=== PATIENT | female | born 1940 | race Caucasian/White ===

== ENCOUNTER 2017-04-19 16:19 | Emergency (ER) | payer MEDICARE, OTHER ==
[~2017-04-19] VITALS: Ht 170.2 cm; Wt 81.7 kg
[~2017-04-19 16:19] MED LIST: ALPR.5 PO; AMLO5 PO; AMLOATOR PO; CELE100 PO; LEVFLO500 PO; NAPR550 PO; OXYACE5T PO; PRED20 PO; PROM25 PO; RXNAPNA550 PO; RXOXYACE PO; TRAM50 PO
[2017-04-19] MEDS ORDERED: LEVO750 (16:35)
[2017-04-19] MEDS ORDERED: Cymbalta20 MG (16:36)
[2017-04-19] MEDS ORDERED: TUSSIN PO (16:36)
[2017-04-19] MEDS ORDERED: Cymbalta20 MG PO (16:37)
[2017-04-19 17:04] LABS: BASOPHILS ABSOLUTE AUTO 0.05 K/mm3 (0.00-0.23); BASOPHILS PERCENT AUTO 1 % (0-2); EOSINOPHILS ABSOLUTE AUTO 0.29 K/mm3 (0.00-0.68); EOSINOPHILS PERCENT AUTO 3 % (0-6); Hematocrit 41.4 % (33.0-51.0); Hemoglobin 13.9 g/dL (11.5-16.0); IMMATURE GRAN ABSOLUTE AUTO 0.04 K/mm3 (0.00-0.10); IMMATURE GRAN PERCENT AUTO 1 % (0-1); LYMPHOCYTES ABSOLUTE AUTO 1.01 K/mm3 (0.84-5.20); LYMPHOCYTES PERCENT AUTO 12 % (21-46); MONOCYTES ABSOLUTE AUTO 0.92 K/mm3 (0.16-1.47); MONOCYTES PERCENT AUTO 11 % (4-13); Mean Corpuscular HGB 30.3 pg (26.0-34.0); Mean Corpuscular HGB Conc 33.6 g/dL (31.5-36.5); Mean Corpuscular Volume 90 fL (80-100); Mean Platelet Volume 11.1 fL (9.1-12.4); NEUTROPHILS ABSOLUTE AUTO 6.49 K/mm3 (1.96-9.15); NEUTROPHILS PERCENT AUTO 74 % (41-73); Platelet Count 244 K/mm3 (150-400); RDW Coefficient Variation 13.2 % (11.7-14.2); RDW Standard Deviation 43.8 fL (35.1-46.3); Red Blood Cell Count 4.58 M/mm3 (3.80-5.20)
[2017-04-19 17:35] LABS: Anion Gap 9 mmol/L (6-16); Blood Urea Nitrogen 17 mg/dL (8-24); Bun/Creatinine Ratio 22.3 (12.0-20.0); CO2, Blood 27 mmol/L (21-32); Calcium, Blood 8.8 mg/dL (8.5-10.1); Chloride, Blood 104 mmol/L (98-108); Creatinine, Blood 0.76 mg/dL (0.40-1.00); Glomerular Filtration Rate >60 (60-); Glucose, Blood 100 mg/dL (70-99); Potassium, Blood 3.6 mmol/L (3.5-5.5); Sodium, Blood 140 mmol/L (136-145)
[2017-04-19] MEDS ORDERED: Prednisone20 MG PO (18:10)
[2017-04-19] MEDS ORDERED: Zithromax250 MG PO (18:10)
== END 2017-04-19 19:05 | disposition home or self-care (01) ==
LOC: ER 16:19
PROVIDERS: Emergency Medicine
DX: H93.13 Tinnitus, bilateral (principal); T37.8X5A Adverse effect of other specified systemic anti-infectives and antiparasitics, initial encounter; T40.2X5A Adverse effect of other opioids, initial encounter; I10 Essential (primary) hypertension; Z87.891 Personal history of nicotine dependence; Z87.01 Personal history of pneumonia (recurrent); Z88.5 Allergy status to narcotic agent; Z79.899 Other long term (current) drug therapy
CPT/HCPCS: 71046; 80048; 85025; 93005; 93010; 99283

== ENCOUNTER → 2020-07-06 | Outpatient (CLI) | payer MEDICARE, OTHER ==
[~2020-07-06] MED LIST changes: +Cymbalta20 MG; +Cymbalta20 MG PO; +LEVO750; +Prednisone20 MG PO; +TUSSIN PO; +Zithromax250 MG PO
== END ==
LOC: LAB SHORT 14:02 → LAB 14:02
DX: L08.9 Local infection of the skin and subcutaneous tissue, unspecified (principal); Z88.5 Allergy status to narcotic agent
CPT/HCPCS: 87070; 87077; 87147; 87186; 87205

== ENCOUNTER 2021-02-17 10:08 | Emergency (ER) | payer MEDICARE, OTHER ==
[~2021-02-17] VITALS: Ht 177.8 cm; Wt 79.4 kg
[2021-02-17] MEDS ORDERED: METO25ER PO (10:33)
[2021-02-17] MEDS ORDERED: ATOR10 PO (10:33)
[2021-02-17] MEDS ORDERED: XARELTO20 MG PO (10:33)
[2021-02-17] MEDS ORDERED: ACET500 PO (11:31)
[2021-02-17] MEDS ORDERED: CEPH500 PO (11:31)
[2021-02-17] MEDS ORDERED: Voltaren100 GM TOP (11:46)
== END 2021-02-17 11:47 | disposition home or self-care (01) ==
LOC: ER 10:08
DX: L03.115 Cellulitis of right lower limb (principal); S09.90XA Unspecified injury of head, initial encounter; I10 Essential (primary) hypertension; I48.91 Unspecified atrial fibrillation; Z88.5 Allergy status to narcotic agent; Z79.899 Other long term (current) drug therapy; Z79.01 Long term (current) use of anticoagulants; Z87.891 Personal history of nicotine dependence; W18.30XA Fall on same level, unspecified, initial encounter
CPT/HCPCS: 70450; 73630; 96372; 99284-25; A9270; J1885

== ENCOUNTER 2021-08-12 07:26 | Inpatient (IN) | payer MEDICARE, OTHER ==
[~2021-08-12] VITALS: Ht 177.8 cm; Wt 81.9 kg
[~2021-08-12 07:26] MED LIST changes: +ACET500 PO; +ALPRAZOLAM0.5 M1 PO; +ATOR10 PO; +CEPH500 PO; +METO10 PO; +METO25ER PO; +OXYC5 PO; +Voltaren100 GM TOP; +XARELTO15 MG PO; +XARELTO20 MG PO
[2021-08-12 08:03] LABS: Base Excess Venous -2.4 mmol/L; Bicarbonate Venous 21.6 mmol/L (24.0-30.0); PCO2 Venous 68.7 mmHg (38-42); pH Blood Venous 7.19 (7.34-7.37)
[2021-08-12 08:21] LABS: Source, Urine Clean Catch
[2021-08-12] MEDS ORDERED: ONDA4ODT MM (08:21)
[2021-08-12] MEDS ORDERED: CHEMOTHERAPY (08:22)
[2021-08-12 08:25] LABS: Hematocrit 32.8 % (33.0-51.0); Hemoglobin 10.2 g/dL (11.5-16.0); Mean Corpuscular HGB 27.6 pg (26.0-34.0); Mean Corpuscular HGB Conc 31.1 g/dL (31.5-36.5); Mean Corpuscular Volume 89 fL (80-100); Mean Platelet Volume 11.2 fL (9.1-12.4); Platelet Count 300 K/mm3 (150-400); RDW Coefficient Variation 14.5 % (11.7-14.2); RDW Standard Deviation 46.3 fL (35.1-46.3); White Blood Cell Count 3.88 K/mm3 (4.00-11.30)
[2021-08-12 08:26] LABS: Appearance, Urine Clear (Clear); Bilirubin, Urine Neg (Neg); Blood, Urine 1+ (Neg); Color, Urine Yellow (P-Yellow); Glucose Qualitative, Urine Neg (Neg); Ketones, Urine Neg (Neg); Leukocyte Esterase, Urine Neg (Neg); Nitrite, Urine Neg (Neg); Protein, Urine 1+ (Neg); Specific Gravity, Urine 1.015 (1.003-1.022); Urobilinogen, Urine NORM (Normal)
[2021-08-12 08:38] LABS: Bacteria Few /hpf; Red Blood Cells, Urine 0-2 /hpf (0-2); Squamous Epithelial Cells Few /hpf (Few); White Blood Cells, Urine 0-2 /hpf (0-5)
[2021-08-12 08:47] LABS: BASOPHILS PERCENT MAN 0 % (0-2); EOSINOPHILS PERCENT MAN 0 % (0-6); LYMPHOCYTES ABSOLUTE MAN 0.27 K/mm3 (0.84-5.20); LYMPHOCYTES PERCENT MAN 7 % (21-46); MONOCYTES ABSOLUTE MAN 0.07 K/mm3 (0.16-1.47); MONOCYTES PERCENT MAN 2 % (4-13); NEUTROPHILS ABSOLUTE MAN 3.53 K/mm3 (1.96-9.15); SEG NEUTROPHILS PERCENT MAN 91 % (41-73); TOTAL CELLS COUNTED 100
[2021-08-12 08:49] LABS: Magnesium, Blood 1.9 mg/dL (1.6-2.4)
[2021-08-12 08:50] LABS: Albumin, Blood 2.1 g/dL (3.4-5.0); Albumin/Globulin Ratio 0.5 (0.8-1.8); Bilirubin, Direct 0.1 mg/dL (0.0-0.3); Bilirubin, Indirect 0.3 mg/dL (0.1-0.7); Bilirubin, Total 0.4 mg/dL (0.1-1.0); Bun/Creatinine Ratio 51.3 (12.0-20.0); Creatinine, Blood 1.19 mg/dL (0.40-1.00); Globulin, Blood 3.9 g/dL (2.2-4.0)
[2021-08-12 09:04] LABS: Influenza A, PCR NEGATIVE (NEGATIVE); Influenza B, PCR NEGATIVE (NEGATIVE); Resp Syncytial Virus, PCR NEGATIVE (NEGATIVE); SARS-Cov-2 (COVID-19) PCR, MMC NEGATIVE (NEGATIVE)
[2021-08-12 10:25] LABS: PCO2 Arterial 49.4 mmHg (35-45); PO2 Arterial 92.4 mmHg (80-100)
[2021-08-12 10:41] LABS: U Amphetamine Screen Not Detected; U Barbituate Screen Not Detected; U Benzodiazapine Screen DETECTED; U Buprenorphine Screen Not Detected; U Cannabinoids Screen Not Detected; U Cocaine Screen Not Detected; U Methadone Screen Not Detected; U Methamphetamine Screen Not Detected; U Opiates Screen Not Detected; U Oxycodone Screen DETECTED; U Phencyclidine Screen Not Detected; U Propoxyphene Screen Not Detected
--- NOTE | 2021-08-12 12:00 | NUR ---
Assumed care of pt on arrival to ICU 12 from ED at 1055. Report received from Ashwin PRUETT. Pt arrived with fentanyl and versed drip for sedation. Changed to propofol drip per v/o from Dr Reyez. OG tube in place and confirmed with xray prior to arrival. Temp ojeda in place. 7.5 cm ETT, 24 cm at teeth. Vent settings ACVC 18/350/5/30%.
[2021-08-12] MEDS ORDERED: QUET25 PO (17:52)
[2021-08-12] MEDS ORDERED: ALPR.5 PO (17:53)
--- NOTE | 2021-08-12 19:28 | NUR ---
SUMMARY Neuro: Propofol 50 mcg/kg/min for sedation. Febrile. Not responsive to tylenol within 1 hr of administration. Ice packs placed to groin and bilat axilla. Effectively reduced temperature to from 101.8 to 100.4. PERRL. Cough and gag intact. Musc: Moves all extremities with equal strength and range of motion. Requires total care for all ADLs, including Q2H reposition. Respiratory: 75 cm ETT, 24 cm at teeth. Vent settings ACVC 18/350/5/30%. SpO2 90% or greater. Moderate amount of thick, cornejo sputum suctioned from ETT. Sputum sample sent. Cardiac: Tachycardia, irregular rhythm with P waves present, rate currently 105-110. No edema. Capillary refill less than 3 seconds BUE and BLE. Requiring levophed 4 mcg/min to maintain MAP greater than 65. Levophed infusing through PICC. GI: Hypoactive BT. Last BM yesterday per family. OG tube with feeds and flushes per orders. : Fung catheter with good urine output Skin: Unchanged from initial assessment Psychosocial: Pt's spouse and daughter at bedside and updated.
[2021-08-13 04:45] LABS: Hematocrit 29.8 % (33.0-51.0); Hemoglobin 9.3 g/dL (11.5-16.0); Mean Corpuscular HGB 27.4 pg (26.0-34.0); Mean Corpuscular HGB Conc 31.2 g/dL (31.5-36.5); Mean Corpuscular Volume 88 fL (80-100); Mean Platelet Volume 11.4 fL (9.1-12.4); Platelet Count 282 K/mm3 (150-400); RDW Coefficient Variation 14.6 % (11.7-14.2); RDW Standard Deviation 46.8 fL (35.1-46.3); Red Blood Cell Count 3.39 M/mm3 (3.80-5.20)
[2021-08-13 04:51] LABS: BASOPHILS ABSOLUTE AUTO 0.01 K/mm3 (0.00-0.23); BASOPHILS PERCENT AUTO 1 % (0-2); EOSINOPHILS ABSOLUTE AUTO 0.03 K/mm3 (0.00-0.68); EOSINOPHILS PERCENT AUTO 3 % (0-6); IMMATURE GRAN ABSOLUTE AUTO 0.19 K/mm3 (0.00-0.10); IMMATURE GRAN PERCENT AUTO 20 % (0-1); LYMPHOCYTES PERCENT AUTO 22 % (21-46); MONOCYTES ABSOLUTE AUTO 0.03 K/mm3 (0.16-1.47); MONOCYTES PERCENT AUTO 3 % (4-13); NEUTROPHILS ABSOLUTE AUTO 0.47 K/mm3 (1.96-9.15); NEUTROPHILS PERCENT AUTO 51 % (41-73)
[2021-08-13 04:57] LABS: White Blood Cell Count 0.93 K/mm3 (4.00-11.30)
[2021-08-13 05:25] LABS: Albumin, Blood 1.8 g/dL (3.4-5.0); Albumin/Globulin Ratio 0.5 (0.8-1.8); Bilirubin, Total 0.7 mg/dL (0.1-1.0); Bun/Creatinine Ratio 42.2 (12.0-20.0); Calcium, Blood 7.2 mg/dL (8.5-10.1); Creatinine, Blood 1.02 mg/dL (0.40-1.00); Globulin, Blood 3.5 g/dL (2.2-4.0); Potassium, Blood 4.5 mmol/L (3.5-5.5); Total Protein, Blood 5.3 g/dL (6.4-8.2)
--- NOTE | 2021-08-13 06:16 | NUR ---
PT. STARTED FIGHTING VENTILATOR LAST NIGHT, AFTER GIVING 2 FENT PUSHES, I UPPED THE SEDATION BY CHANGING PROP FROM 50 TO 55. PT. RESTED WELL AFTER THE CHANGE AND REQUIRED NO MORE PUSHES. PT. STILL REMAINS ON THE SAME VENTILATOR SETTINGS AND IS SATTING WELL. PT. WAS ABLE TO COME DOWN FROM 4 OF LEVO TO 3, MAINTAING GOOD PRESSURES. HUBER IS STILL IN AND DRAINING WELL, PT. HAD 560 UOP OVERNIGHT. PT. TEMPERATURE HAS BEEN BETWEEN 99.9-101.1 TONIGHT. TUBE FEED RESIDUALS WERE GOOD SO THE TUBE FEED WAS UPPED TO GOAL RATE OF 35 WITH 30 Q4HR FLUSH. PT. BATHED OVERNIGHT AND RESTING COMFORTABLY AT THIS TIME.
--- NOTE | 2021-08-13 07:41 | NUR ---
TOOK OVER CARE OF PT AT 0700, PT VENTED ON AC/VC 18/350/30%/15, SEDATED WITH 55MCG OF PROPOFOL AND 3MCG OF LEVO RUNNING
--- NOTE | 2021-08-13 10:34 | NUR ---
VERIFIED WITH PHARMACY LOVENOX DOSE IS CORRECT FOR FULL ANTICOAGULATION. PROPOFOL PLACED ON SB
--- NOTE | 2021-08-13 18:43 | NUR ---
SUMMARY NEURO: PT FOLLOWING COMMANDS WHEN MOTIVATED TO. BUE VERY WEAK, PUPILS PERRLA. CARDIAC; PT IN AIB THROUGHOUT DAY, HR RANGING 115-150'S. AWARE. PT IS ON FULL DOSE ANTICOAGULATION. PULSES PALPABLE, TRACE EDEMA FORMING BLE. LEVO ON SB. MAPS HAVE BEEN >65. PT TAKES 50MG OF PO METOPROLOL BUT NONE ORDERED AT THIS TIME. CALCIUM WAS NOT REPLACED THIS SHIFT LUNGS: PRESSURE SUPPORT 15/5 30%. SPUTUM CAME BACK POSITIVE FOR GRAM + COCCI. GI: TF RUNNING AT GOAL, ACTIVE BOWEL SOUNDS, SOFT ABDOMEN. TWO LARGE BM'S OF SOFT, BROWN STOOL. : HUBER IN PLACE, LOW OUTPUT, YELLOW/HAZY. SKIN: LEFT FOOT HAS SLIGHT REDNESS, TMAX OF 102.1
--- NOTE | 2021-08-13 21:20 | NUR ---
ASSUMED CARE AT 1900 PT LAYING IN BED INTUBATED WITH VENT SETTINGS SPONT 15/5, FIO2 30%, Vt 600'S; SMALL AMOUNT OF THICK SECREATIONS FROM ETT. PT SEDATED WITH PROPOFOL INFUSING AT 30MCG/KG/MIN; PT OPENS EYES TO VERBAL STIMULATION AND UPON DIRECTION; MOVES BLE SPONTANIOUSLY; BUE EXTREAMLY WEAK; DID NOT ANSWER Y/N QUESTIONS. SINUS ARRHYTHMIA NOTED, HR 120'S. SBP 90-110, MAP >65; LEVOPHED ON SB. PIVOT INFUSING VIA OG AT 35ML/HR (GOAL) WITH 30ML WATER FLUSHES Q4HR; 60ML RESIDUALS. HUBER IN PLACE DRAINING YELLOW, CLOUDY, SEDAMENT OUTPUT. PICC TO RUTH PATENT AND INFUSING. SEE SHIFT ASSESSMENT FOR FULL ASSESSMENT.
[2021-08-14 03:52] LABS: Hematocrit 26.6 % (33.0-51.0); Hemoglobin 8.5 g/dL (11.5-16.0); Mean Corpuscular HGB 27.2 pg (26.0-34.0); Mean Corpuscular Volume 85 fL (80-100); Mean Platelet Volume 11.5 fL (9.1-12.4); Platelet Count 207 K/mm3 (150-400); RDW Coefficient Variation 14.6 % (11.7-14.2); RDW Standard Deviation 45.1 fL (35.1-46.3); Red Blood Cell Count 3.12 M/mm3 (3.80-5.20)
[2021-08-14 04:00] LABS: BASOPHILS ABSOLUTE AUTO 0.01 K/mm3 (0.00-0.23); BASOPHILS PERCENT AUTO 3 % (0-2); EOSINOPHILS ABSOLUTE AUTO 0.02 K/mm3 (0.00-0.68); EOSINOPHILS PERCENT AUTO 5 % (0-6); IMMATURE GRAN PERCENT AUTO 0 % (0-1); LYMPHOCYTES ABSOLUTE AUTO 0.25 K/mm3 (0.84-5.20); LYMPHOCYTES PERCENT AUTO 68 % (21-46); MONOCYTES ABSOLUTE AUTO 0.03 K/mm3 (0.16-1.47); MONOCYTES PERCENT AUTO 8 % (4-13); NEUTROPHILS ABSOLUTE AUTO 0.06 K/mm3 (1.96-9.15); NEUTROPHILS PERCENT AUTO 16 % (41-73); White Blood Cell Count 0.37 K/mm3 (4.00-11.30)
[2021-08-14 04:11] LABS: Magnesium, Blood 1.9 mg/dL (1.6-2.4)
[2021-08-14 04:12] LABS: Albumin, Blood 1.6 g/dL (3.4-5.0); Albumin/Globulin Ratio 0.5 (0.8-1.8); Bilirubin, Total 0.8 mg/dL (0.1-1.0); Bun/Creatinine Ratio 41.3 (12.0-20.0); Creatinine, Blood 1.04 mg/dL (0.40-1.00); Globulin, Blood 3.5 g/dL (2.2-4.0); Phosphorus, Blood 2.2 mg/dL (2.5-4.9); Total Protein, Blood 5.1 g/dL (6.4-8.2)
--- NOTE | 2021-08-14 06:11 | NUR ---
END OF SHIFT SUMMARY NO ACUTE CHANGES OVER NIGHT. PT CONT TO BE INTUBATED WITH VENT SETTINGS SPONT 15/5, FIO2 35%, Vt 550-600; SMALL AMOUNT OF THIN SECREATIONS FROM ETT. PT CONT TO BE REACTIVE TO VERBAL STIMULI; WILL OPEN EYES SPONTANIOUSLY AND ON COMMAND; DID NOT FOLLOW OTHER CAMMANDS; WILL SPONTANIOUSLY MOVE ALL EXTREMITIES, PULLING AGAINST RESTRAINTS WEAKLY; PROPOFOL INFUSING AT 35MCG/KG/MIN. TMAX 102; FAN PLACED ON PT AND TYLENOL GIVEN; TEMP NOW 99.8. HR 100-120. SBP 90-120; MAP >65; LEVOPHED OFF ALL NIGHT. PIVOT INFUSING VIA OG AT GOAL. RECTAL TUBE PLACED DUE TO LIQUID STOOLS ANY TIME PT WAS TURNED OR COUGHED; 350ML OUT OF RECTAL TUBE. HUBER IN PLACE AND DRAINING TO GRAVITY; 450ML OUTPUT. MEPILEX TO COCCYX, AREA LESS RED THAN AT THE BEGINING OF SHIFT; DRESSING CHANGED DURING ATTEND CHANGE. PICC TO RUTH PATENT WITH DRESSING C/D/I. WILL REPORT TO AM RN WHEN AVAILABLE.
--- NOTE | 2021-08-14 08:00 | NUR ---
PT AWAKE, APPEARS AGITATED, GRIMACING, PULLING ON RESTRAINTS, UNABLE TO FOLLOW COMMANDS, BUT MOVING ALL EXTREMITIES. PROPOFOL DRIP @ 35 MCG/KG/MIN. RR 36 AND PT COUGHING-MED WITH FENTANYL 50 MCG IVP X 1 FOR PAIN/SEDATION ADJUNCT. SHORTLY AFTER MED WITH FENTANYL, RR 18 AND CPOT 0.TEMP 99.8, ECG SHOWS ST WITH RATE 110-120'S. MAP TRENDING 70'S. NO NOTED EDEMA. DP/PT FAINT, BUT PALPABLE. LUNGS COARSE TO UPPER LOBES AND DIMINISHED IN THE BASES. ETT SUCTION PRODUCTIVE OF LARGE AMOUNT OF THICK, WEN SECRETIONS. ETT/BITE BLOCK RETAPED-7.5/24 @ TEETH. VENT:PS 15/5-FIO2 30%-SATS>90%. OGTF WITH 15 CC RESIDUAL REFED. PIVOT @ 35 CC/HR (GOAL). RECTAL TUBE INTACT WITH MODERATE AMOUNT OF BROWN, LIQUID STOOL. RECTAL TUBE CARE DONE, PINTO AND DRY CHANTAL CHANGED, AND CALAZIME APPLIED TO SKIN AROUND RECTAL TUBE. MEPILEX INTACT TO COCCYX-SLIGHT REDNESS NOTED UNDER DRESSING, BUT NO SKIN BREAKDOWN. 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 SCATTERED ECCHYMOTIC AREA TO UPPER EXTREMITIES. HUBER TO BSD WITH SMALL AMOUNT OF DARK, YELLOW, CLOUDY URINE. ANTICIPATE POSSIBLE EXTUBATION TODAY. DISCUSSED PLAN OF CARE WITH PT SPOUSE, JARAD. JARAD VERBALIZES THAT HE IS UNSURE IF PT WILL CONTINUE WITH HER CHEMO SHE HAS HAD SO MANY COMPLICATIONS. PT SPOUSE WOULD LIKE TO SPEAK WITH PALLIATIVE CARE TO DISCUSS PLAN OF CARE AND OPTIONS.
--- NOTE | 2021-08-14 10:00 | NUR ---
DR. COOLEY UPDATED. DR. GAGE'S OFFICE NOTIFIED OF PT ADMIT AND CONSULTATION REQUESTED. PT OPENING HER EYES TO VOICE AND SHE FOLLOWED COMMANDS TO SYSTEMS ANALYST DEVELOPER WITH THE RIGHT HAND. RR 30'S-PRECEDEX DRIP INITIATED @ 0.4 MCG/KG/MIN-PROPOFOL DRIP TITRATED DOWN TO 20 MCG/KG/MIN. THE GOAL IS TO TITRATED PROPOFOL TO OFF TOLERATED. PS INCREASED TO [address] DALEY-SATS>90%
--- NOTE | 2021-08-14 12:15 | NUR ---
PT APPEARS ANXIOUS AND AGITATED WITH PRECEDEX @ 1.0 MCG/KG/MIN AND PROPOFOL @ 10 MCG/KG/MIN. RR 34 AND PT GRIMACING AND COUGHING. MED WITH FENTANYL 50 MCG IVP X 1 - SEE EMAR. HERE TO SEE PT. UPDATED GIVEN. AWARE THAT PT FAMILY WITH RETURN IN APROXIMATELY 10 MINUTES-DR. GAGE REQUESTS TO HAVE PT SPOUSE "CALL ME."
--- NOTE | 2021-08-14 12:30 | NUR ---
Attempted to visit with and family. No family at bedside currently.
--- NOTE | 2021-08-14 13:44 | NUR ---
DR. COOLEY IN TO SEE PT. PS 10. CONTINUE TO ATTEMPT TO WEAN PROPOFOL TO OFF. ATIVAN 1 MG IVP Q 1 HOUR TO BE GIVEN PRN AGITATION. DR. GAGE TO RETURN TO SPEAK WITH PT FAMILY @ 1700-DR. COOLEY TO ATTEND THIS MEETING WELL.
--- NOTE | 2021-08-14 15:00 | NUR ---
TEMP 102.9. TYLENOL GIVEN PER TUBE AND ICE PACKS PLACED. RR 40'S. PT GRIMACING, AGITATED, AND PULLING ON RESTRAINTS*WITH PROPOFOL @ 10 MCG/KG/MIN AND PRECEDEX @ 1.4 MCG/KG/MIN*. UPDATED. BC X 2, AND SPUTUM SENT. PT PLACED ON AC/VC 18, 470, 5, 30%-PROPOFOL TITRATED UP TO 20 MCG/KG/MIN, PRECEDEX TITRATED DOWN TO 0.7 MCG/KG/MIN.
--- NOTE | 2021-08-14 15:45 | NUR ---
MAP TRENDING LESS THAN 50. PT RESTING QUIETLY ON VENT WITH PROPOFOL @ 25 MCG/KG/MIN AND PRECEDEX @ 0.7 MCG/KG/MIN. DR. COOLEY AWARE. LEVOPHED DRIP INITIATED @ 2 MCG/MIN-TITRATE TO KEEP MAP 60-66.
--- NOTE | 2021-08-14 16:56 | NUR ---
DR. GAGE AND DR. COOLEY IN TO DISCUSS PLAN OF CARE WITH PT FAMILY.
--- NOTE | 2021-08-14 18:00 | NUR ---
PT RESTING QUIETLY ON VENT WITH PROPOFOL @ 25 MCG/KG/MIN AND PRECEDEX @ 0.7 MCG/KG/MIN. SATS>90% VENT REMAINS ON AC/VC18, 470, 5, 30% HR 70'S SR. MAP TRENDING 65-70 WITH LEVOPHED @ 3 MCG/MIN. HUBER WITH 450 CC URINE OUT THIS SHIFT. URINE REMAINS DARK, YELLOW, AND CLOUDY. PT FAMILY LEFT FOR THE EVENING. BEFORE LEAVING, PT SPOUSE DON VERBALIZED HIS HOPE TO EXTUBATE PT AGUILA AND TO TAKE HER HOME ON HOSPICE.
--- NOTE | 2021-08-14 21:21 | NUR ---
ASSUMED CARE AT 1900 PATIENT IS INTUBATED AND SEDATED ON PRECEDEX AND PROPOFOL, RESPONDS TO PRESSURE. MOVES ALL EXTREMETIES. 02 SATS 97% ON VENT AC VC+ 18/470/5/30%, RR 18-20, SUCTIONING LARGE AMOUNTS OF THICK EWN SPUTUM. HR SR 70s-80s, BP STABLE WITH LEVO INF. OG TUBE INF TUBE FEED, PIVOT AT GOAL RATE OF 35 MLS/HR WITH 30 MLS FLUSHES Q4 HOURS, 500 MLS RISIDUAL, 250 REINSTILLED, TUBE FEED ON SB FOR 30 MINS. HUBER PATENT DRAINING CLOUDY YELLOW URINE TO GRAVITY. RECTAL TUBE DRAINING LIQUID BROWN STOOL. ORAL CARE DONE, PATIENT REPSOITIONED. SEE SHIFT ASSESSMENT FOR MORE INFORMATION.
[2021-08-15 03:31] LABS: Hematocrit 27.2 % (33.0-51.0); Hemoglobin 8.6 g/dL (11.5-16.0); Mean Corpuscular HGB Conc 31.6 g/dL (31.5-36.5); Mean Corpuscular Volume 86 fL (80-100); Mean Platelet Volume 11.5 fL (9.1-12.4); Platelet Count 158 K/mm3 (150-400); RDW Coefficient Variation 14.5 % (11.7-14.2); RDW Standard Deviation 45.2 fL (35.1-46.3); Red Blood Cell Count 3.18 M/mm3 (3.80-5.20)
[2021-08-15 03:40] LABS: BASOPHILS PERCENT AUTO 0 % (0-2); EOSINOPHILS ABSOLUTE AUTO 0.03 K/mm3 (0.00-0.68); EOSINOPHILS PERCENT AUTO 27 % (0-6); IMMATURE GRAN PERCENT AUTO 0 % (0-1); LYMPHOCYTES ABSOLUTE AUTO 0.07 K/mm3 (0.84-5.20); LYMPHOCYTES PERCENT AUTO 64 % (21-46); MONOCYTES ABSOLUTE AUTO 0.01 K/mm3 (0.16-1.47); MONOCYTES PERCENT AUTO 9 % (4-13); NEUTROPHILS PERCENT AUTO 0 % (41-73)
[2021-08-15 03:41] LABS: White Blood Cell Count 0.11 K/mm3 (4.00-11.30)
[2021-08-15 03:47] LABS: Bun/Creatinine Ratio 41.6 (12.0-20.0); Calcium, Blood 6.9 mg/dL (8.5-10.1); Creatinine, Blood 0.94 mg/dL (0.40-1.00); Phosphorus, Blood 4.1 mg/dL (2.5-4.9); Potassium, Blood 4.9 mmol/L (3.5-5.5)
--- NOTE | 2021-08-15 05:45 | NUR ---
SHIFT SUMMARY PATIENT REMAINS INTUBATED AND SEDATED IN PROPOFOL AND PRECEDEX, PRECEDEX WAS INCREASED THROUGH THE NIGHT DUE TO PATIENT AGITATION AND UNABLE TO TOLERATE THE VENT, PROPOFOL REMAINS THE SAME AND PRN ATIVAN AND FENTANYL GIVEN. 02 SATS 97% ON VENT AC VC+ 18/470/5/30%, RR 18-20, SCANT AMOUNT OF SPUTUM SUCTIONED. LS LESS COARSE. HR SR 70s-90s, BP STABLE ON LEVOPHED. OG INF TUBE FEED AT GOAL RATE. HUBER PATENT AND DRAINING TO GRAVITY. RECTAL TUBE DRAINING LIQUID BROWN STOOL TO GRAVITY. BED BATH DONE, PATIENT REPOSITIONED Q2 HOURS. UPDATED AT START OF SHIFT AND THIS AM.
--- NOTE | 2021-08-15 08:00 | NUR ---
PT REMAINS INTUBATED, SEDATED, AND MECHANICALLY VENTILATED. PROPOFOL DRIP @ 25 MCG/KG/MIN, PRECEDEX @ 1.4 MCG/KG/MIN-PT MED WITH FENTANYL 50 MCG IVP X 1 FOR CPOT 4 AND RR 36. TEMP 100.0. ECG SHOWS SR TO ST. MAP TRENDING >65 WITH LEVOPHED @ 5 MCG/MIN. NO NOTED EDEMA. DP/PT PULSES FAINT, BUT PALPABLE. LUNGS COARSE TO UPPER LOBES R>L. ETT 7.5/24 @ TEETH. VENT AC/VC 18, 470, 5, 30%-SATS>90%. ETT SUCTION PRODUCTIVE OF SMALL AMOUNT OF THICK, WEN SECRETIONS. OGTF WITH 150 CC RESIDUAL DISCARDED AND AM MEDS GIVEN. PIVOT CONTINUES AT GOAL 35 CC/HR. RECTAL TUBE CONTINUES TO DRAIN MODERATE AMOUNT OF BROWN, LIQUID STOOL. HUBER WITH SMALL AMOUNT OF DARK, YELLOW URINE TO BSD-URINE OUTPUT HAS IMPROVED OVER NIGHT AND APPEARS LESS CLOUDY THAN 08/14/21. MEPILEX TO COCCYX REMOVED AND THE COCCYX AREA APPEARS LESS RED THAN 08/14/21. MEPILEX REPLACED. RECTAL TUBE CARE DONE. PT POSITIONED TO COMFORT ON LEFT SIDE. HOB 30 DEGREES AND HEELS FLOATED. PT FAMILY GIVEN FULL UPDATE.
--- NOTE | 2021-08-15 11:10 | NUR ---
DR. JARVIS IN TO SEE PT. PROPOFOL ON SB. PRECEDEX DRIP @ 0.7 MCG/KG/MIN. VENT CHANGED TO PS 7, PEEP 5.
--- NOTE | 2021-08-15 11:14 | NUR ---
RR 45. PS INCREASED TO 12/5-ROBIN, RT @ BEDSIDE. PT TO REMAIN ON PS FOR MINIMUM OF 30 MINUTES.
--- NOTE | 2021-08-15 11:45 | NUR ---
PT WIDE AWAKE AND ALERT. NODDING APPROPRIATELY TO "YES" OR "NO" QUESTIONS AND MOUTHING WORDS AROUND THE ETT. RR 50-60'S. PT INDICATED TO HER SPOUSE AND STAFF THAT SHE WISHES TO BE EXTUBATED. FURTHER, PT COMMUNICATING HER DESIRE TO NOT BE RE-INTUBATED IF SHE HAS RESPIRATORY DISTRESS ONCE EXTUBATED. DR. JARVIS UPDATED.
--- NOTE | 2021-08-15 11:53 | NUR ---
PT EXTUBATED AND PLACED ON 4 LITERS NASAL CANULA. PT IMMEDIATELY VERY TACHYPNEIC & DYSPNEIC. APPEARS RESTLESS AND AGITATED. DR. JARVIS AWARE. PT MED WITH FENTANYL 50 MCG IVP X 1 AND PRECEDEX DRIP RESUMED AT 0.7 MCG/KG/MIN.
--- NOTE | 2021-08-15 12:00 | NUR ---
PT CONTINUES TO LABOR TO BREATHE. RR 50'S. RESPIRATIONS VERY SHALLOW. AIR HUNGER NOTED. SEBLE TIMMONS FROM PALLIATIVE CARE AT BEDSIDE. PT FAMILY DECIDED TO MAKE PT COMFORT CARE STATUS.
--- NOTE | 2021-08-15 12:25 | NUR ---
PT CONTINUES TO APPEAR RESTLESS AND TO LABOR TO BREATH. AIR HUNGER NOTED. MED WITH MORPHINE 4 MG IVP X 1-SEE EMAR. PT FAMILY AT BEDSIDE.
--- NOTE | 2021-08-15 12:36 | NUR ---
RR 40'S NOW, BUT MINIMAL IMPROVEMENT OF AIR HUNGER WITH LAST DOSE OF MORPHINE. PT GRIMACING, AND SHE APPEARS RESTLESS. MED WITH MORPHINE 4 MG IVP X 1 AND ROXANOL 10 MG/ATIVAN 2 MG S.L.-SEE EMAR.
--- NOTE | 2021-08-15 12:36 | NUR ---
Called to ICU after extubation. Pt demonstrating extreme work of breathing. When I entered the room, and gdau at bedside. Pt awake, alert, anxious, RR 34-40/min, circumoral cyanosis noted. Gently discussed option of managing s/s with medications with . He is distressed, looked to granddaughter and together they requested comfort measures be started now. t/c to Dr with VO received for transition to comfort care and comfort care order set. Orders entered. RN at bedside with family. Pt is appears to be actively dying.
--- NOTE | 2021-08-15 12:47 | NUR ---
Dietitian Research at bedside with pt/family.
--- NOTE | 2021-08-15 13:02 | NUR ---
AIR HUNGER HAS IMPROVED. PT ABLE TO MOUTH SOME WORDS AND SPEAKS IN A WHISPER. SHE SPEAKS IN SHOR, ONE WORD STATEMENTS. PT IS GRIMACING AND HOLDING HER LLQ. PT REPORTS LLQ PAIN-MED WITH DILAUDID 2 MG IVP X 1-SEE EMAR. CHAPLAIN WYMAN AT BEDSIDE PRAYING WITH PT AND FAMILY.
--- NOTE | 2021-08-15 13:39 | NUR ---
Spiritual Care Request. Pt. is on comfort care at time of arrival, and displayed evidence of being aware of her surroundings, verbalizing affection with family. Pt. also displayed evidence of visceral pain in her abdomen. Established rapport with a calming presence with family and friends who are present. Prayed with Pt. and family present. Medicine was ordered to relieve Pts. discomfort. Scripture is read. Facilitated a short life history, and gave a prayer (commendation) for the dying. Spouse verbalized gratitude for the spiritual care visit and excused this export packer so that family could be alone with Pt. [facility] ([facility]-staff) is identified as home of choice.
--- NOTE | 2021-08-15 13:40 | NUR ---
PT RESTING QUIETLY WITH HER SPOUSE AT BEDSIDE. SATS 60'S. NO NOTED AIR HUNGER OR RESPIRATORY DISTRESS AT PRESENT.
--- NOTE | 2021-08-15 17:30 | NUR ---
PT WAS MEDICATED FOR GENERAL PAIN AND AIR HUNGER SEVERAL TIMES THROUGH OUT THE AFTERNOON/EVENING-SEE EMAR. PT SPOUSE AND FAMILY AT BEDSIDE. PT @ 1730. PT VOMITED A LARGE AMOUNT OF WHAT APPEARED TO BE UNDIGESTED TUBE FEEDING. PT SPOUSE TOOK PT BELOINGINGS WITH HIM. PT TO [facility]. FINAL DISCHARGE COMPLETED BY SEBLE VEGA.
== END 2021-08-15 17:30 | DRG 871 ==
LOC: ER 07:26 → ICUW 10:20
PROVIDERS: Family Medicine; Internal Medicine Critical Care Medicine; Student in an Organized Health Care Education/Training Program; ADMIT Internal Medicine
PROC: 0BH17EZ Insertion of Endotracheal Airway into Trachea, Via Natural or Artificial Opening (ICD-10-PCS; principal; 2021-08-12)
PROC: 5A1945Z Respiratory Ventilation, 24-96 Consecutive Hours (ICD-10-PCS; 2021-08-12)
PROC: 3E033XZ Introduction of Vasopressor into Peripheral Vein, Percutaneous Approach (ICD-10-PCS; 2021-08-12)
PROC: 3E03329 Introduction of Other Anti-infective into Peripheral Vein, Percutaneous Approach (ICD-10-PCS; 2021-08-12)
PROC: 05HY33Z Insertion of Infusion Device into Upper Vein, Percutaneous Approach (ICD-10-PCS; 2021-08-12)
DX: A41.9 Sepsis, unspecified organism (principal); J14 Pneumonia due to Hemophilus influenzae; J96.01 Acute respiratory failure with hypoxia; J96.02 Acute respiratory failure with hypercapnia; R65.21 Severe sepsis with septic shock; C25.9 Malignant neoplasm of pancreas, unspecified; C78.6 Secondary malignant neoplasm of retroperitoneum and peritoneum; J44.0 Chronic obstructive pulmonary disease with (acute) lower respiratory infection; J44.1 Chronic obstructive pulmonary disease with (acute) exacerbation; Z20.822 Contact with and (suspected) exposure to COVID-19; Z51.5 Encounter for palliative care; Z66 Do not resuscitate; Z78.1 Physical restraint status; L40.9 Psoriasis, unspecified; E78.5 Hyperlipidemia, unspecified; I12.9 Hypertensive chronic kidney disease with stage 1 through stage 4 chronic kidney disease, or unspecified chronic kidney disease; D70.1 Agranulocytosis secondary to cancer chemotherapy; T45.1X5A Adverse effect of antineoplastic and immunosuppressive drugs, initial encounter; N18.30 Chronic kidney disease, stage 3 unspecified; I48.91 Unspecified atrial fibrillation; M54.30 Sciatica, unspecified side; Z87.01 Personal history of pneumonia (recurrent); Z87.891 Personal history of nicotine dependence; Z87.11 Personal history of peptic ulcer disease; Z86.711 Personal history of pulmonary embolism; Z79.01 Long term (current) use of anticoagulants; Z79.899 Other long term (current) drug therapy
CPT/HCPCS: 0241U; 31500; 36415; 36569; 36600; 51702; 70450; 71045; 80048; 80053; 80076; 81001; 82803; 82947; 83605; 83690; 83735; 83880; 84100; 84145; 85025; 87040; 87070; 87077; 87185; 87186; 87205; 87449; 93005; 93010; 94002; 94003; 94640; 94664; 96361; 96374; 99285-25; A9270; C1751; C9113; J0456; J1170; J1650; J2060; J2250; J2270; J2543; J2704; J3010; J3370; J7030; J7040; J7050; J7060; J7120; Q5110